=== PATIENT | female | born 1955 | race Two or more races ===

== ENCOUNTER 2024-11-20 18:10 | Emergency (ER) | payer MEDICARE, MEDICAID, SELFPAY ==
[2024-11-20 18:49] VITALS: BP 171/72; PULSE 103; RESP 18; TEMP 36.9; O2SAT 97
--- NOTE | 2024-11-20 19:06 | XR_ITS ---
Examination: AP chest single view Technique: AP portable upright chest single view Date and time: November 20, 2024, 1928 hrs., Comparison September 23, 2023 Indications: Weakness shortness of breath today. Findings: Mild prominence cardiac contour No pneumonia or pulmonary edema. Minor subsegmental atelectasis at the lung bases Median sternotomy wires. Significant osteopenia Impression: Minor bibasilar subsegmental atelectasis
--- NOTE | 2024-11-20 19:06 | EKG_ITS ---
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[id number] Requested By: Karen Vela Order Number: [id number] Reading MD: Karen Vela Measurements Intervals [place] Rate: 101 P: 51 ME: 122 QRS: -7 QRSD: 90 T: 79 QT: 345 QTc: 449 Interpretive Statements SINUS TACHYCARDIA WITH OCCASIONAL SUPRAVENTRICULAR PREMATURE COMPLEXES POSSIBLE LEFT ATRIAL ENLARGEMENT [-0.1mV P-WAVE IN V1/V2] LOW QRS VOLTAGE IN PRECORDIAL LEADS [QRS DEFLECTION < 1.0 mV IN CHEST LEADS] POSSIBLE ANTERIOR MYOCARDIAL INFARCTION , PROBABLY OLD [30 ms Q WAVE IN V3/V4, OR R < 0.2 mV IN V4] ABNORMAL RHYTHM ECG Compared to ECG 09/23/2023 21:54:50 Low QRS voltage now present Sinus rhythm no longer present Myocardial infarct finding still present /store/S0/[id number]/ecg/[id number].pdf
--- NOTE | 2024-11-20 19:08 | EDRME_ITS ---
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 Per patient she is complaining of increased stress recently. Patient did have dizziness this morning but is no longer having dizziness. Patient complains of weakness generalized patient denies chest pain but does feel short of breath and was having some abdominal pain. Patient also complains of some left groin pain on and off. Patient has bilateral [id number]-[id number]-eqgy amputations. Patient states she has to transfer herself to the bathroom. Patient has a history of diabetes high blood pressure, hyperlipidemia, coronary artery disease. Patient states she recently had a right finger infection but was on antibiotics and since then resolved per patient. Patient denies fever, nausea, vomiting. I have greeted and performed a focused initial assessment of this patient. Initial appropriate labs ordered at this time. A comprehensive ED assessment and evaluation of the patient and analysis of all test and completion of medical decision making process will be conducted by additional ED provider. Chief Complaint: Dizziness Time Seen by Provider: 11/20/24 18:21 Vital signs: Vital Signs Temperature 98.5 F 11/20/24 18:49 Pulse Rate 103 H 11/20/24 18:49 Respiratory Rate 18 11/20/24 18:49 Blood Pressure 171/72 H 11/20/24 18:49 Pulse Oximetry (%) 97 11/20/24 18:49 Oxygen Delivery Method Room Air 11/20/24 18:49
[2024-11-20 19:26] VITALS: BP 160/76; PULSE 99; RESP 18; O2SAT 98
--- NOTE | 2024-11-20 19:34 | PD.EDWEAK ---
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 Per patient she is complaining of increased stress recently. Patient did have dizziness this morning but is no longer having dizziness. Patient complains of weakness generalized patient denies chest pain but does feel short of breath and was having some abdominal pain. Patient also complains of some left groin pain on and off. Patient has bilateral bvojv-aqi-[id number] amputations. Patient states she has to transfer herself to the bathroom. Patient has a history of diabetes high blood pressure, hyperlipidemia, coronary artery disease. Patient states she recently had a right finger infection but was on antibiotics and since then resolved per patient. Patient denies fever, nausea, vomiting. I have greeted and performed a focused initial assessment of this patient. Initial appropriate labs ordered at this time. A comprehensive ED assessment and evaluation of the patient and analysis of all test and completion of medical decision making process will be conducted by additional ED provider. DR. NORIEGA MAIN ED EVALUATION: 69 y/o female with Hx of Type II DM, HTN, and BL Above the Knee Amputation presents to ED c/o weakness and dizziness x 2 days. Patient also reports left-sided abdominal pelvic pain. No other concerns or complaints expressed at this time. Related Data Home Medications ?Medication ?Instructions ?Recorded ?Confirmed metformin 500 mg tablet 500 mg PO BIDAC #0 tabs 11/20/13 10/10/23 (Glucophage) amlodipine 5 mg tablet 5 mg PO QDAY 09/06/23 10/10/23 clopidogrel 75 mg tablet 75 mg PO QDAY 09/06/23 10/10/23 lisinopril 20 mg tablet 20 mg PO QDAY 09/06/23 10/10/23 metoprolol succinate 100 mg 100 mg PO QDAY 09/06/23 10/10/23 tablet,extended release 24 hr aspirin 81 mg capsule 81 mg PO QDAY 09/07/23 10/10/23 atorvastatin 40 mg tablet 40 mg PO QDAY 09/07/23 10/10/23 baclofen 10 mg tablet 10 mg PO QDAY 09/07/23 10/10/23 gabapentin 300 mg capsule 300 mg PO HS 09/07/23 10/10/23 insulin degludec 100 unit/mL (3 20 unit subcut QDAY 09/07/23 10/10/23 mL) subcutaneous pen (Tresiba FlexTouch U-100 insulin) pantoprazole 40 mg tablet,delayed 40 mg PO QDAY 09/07/23 10/10/23 release Previous Rx's ?Medication ?Instructions ?Recorded cholecalciferol (vitamin D3) 25 2,000 unit PO QDAY #30 tabs 09/18/23 mcg (1,000 unit) tablet pregabalin 300 mg capsule (Lyrica) 300 mg PO BID #30 caps 09/18/23 ascorbic acid (vitamin C) 250 mg 500 mg (2 x 250 mg) PO BID #60 tabs 10/14/23 tablet (Vitamin C) docusate sodium 100 mg capsule 100 mg PO BID #60 caps 10/14/23 hydrocodone 5 mg-acetaminophen 325 1 tab PO Q6H PRN pain (scale score 10/14/23 mg tablet 7-10) #30 tabs zinc sulfate 50 mg zinc (220 mg) 220 mg (4.4 x 50 mg zinc (220 mg)) 10/14/23 capsule PO QDAY #30 caps ondansetron 4 mg disintegrating 4 mg PO Q6H PRN nausea and 10/24/23 tablet vomiting #10 tabs Allergies Allergy/AdvReac Type Severity Reaction Status Date / Time No Known Allergies Allergy Verified 11/20/24 18:14 Review of Systems Review of Systems Systems Reviewed: All systems reviewed, normal except as documented Past Medical History Past Medical History CARDIAC: Positive Hypercholesterolemia and Hypertension MUSCULOSKELETAL: Positive Musculoskeletal Disorders and Arthritis ENT: Positive Cataracts ENDOCRINE: Positive Endocrine Disorders and Diabetes Mellitus Type 2 OTHER HISTORY: Positive Falls and Blood Transfusions Family History FAMILY HISTORY: Positive Family Cardiac Disorders Surgical History SURGICAL: Positive Open Heart Surgery, Coronary Artery Bypass Graft, Amputation and Tubal Ligation ED Exam Narrative Physical exam: Generally patient is alert and in no obvious distress, heart regular rate and rhythm, lungs clear to auscultation equal bilaterally, abdomen is obese soft bowel sounds present's and nontender extremities show bilateral below the knee amputations, neurologic exam shows [place] Coma Scale of 15 Course Course Course Narrative: CXR was ordered for determining the etiology of shortness of breath. Quality Measures none Orders Category Date Time Status EKG (ED ONLY) *Do not use* NOW Care 11/20/24 19:06 Completed EKG (ED Only) Stat Exams 11/20/24 19:06 Draft XR chest 1V Stat Exams 11/20/24 19:06 Completed BNP [B-Type Natriuretic Peptide] Stat Lab 11/20/24 20:30 Completed CBC Stat Lab 11/20/24 20:30 Completed Comprehensive Metabolic Panel Stat Lab 11/20/24 20:30 Completed Lipase Stat Lab 11/20/24 20:30 Completed Troponin I Stat Lab 11/20/24 20:30 Completed Urinalysis, C/S if Indicated Stat Lab 11/20/24 20:15 Completed Urine Culture Stat Lab 11/20/24 20:15 Received cefTRIAXone/D5w 1gm IV premix [Rocephin/D5w 1gm IV Med 11/20/24 21:17 Discontinued premix] 1 gm in 50 ml IV X1 Vital Signs Vital signs: Vital Signs Temperature 98.5 F 11/20/24 18:49 Pulse Rate 103 H 11/20/24 18:49 Respiratory Rate 18 11/20/24 18:49 Blood Pressure 171/72 H 11/20/24 18:49 Pulse Oximetry (%) 97 11/20/24 18:49 Oxygen Delivery Method Room Air 11/20/24 18:49 Weakness MDM Narrative MDM Narrative:: Scribe Attestation: I, Misty Ramos am scribing for and in the presence of Dr. Noriega. Provider Notation: Although this document has been carefully reviewed, there may still be some phonetic and other typographical errors. These errors are purely grammatical due to imperfections in the software program and should not be construed in any way to compromise the substance of the patient's medical care during this visit. Differential diagnosis: Infection, electrolyte abnormality, anemia I interpreted all labs. There was no significant abnormality. There is a slight leukocytosis. Urine is infected. EKG done at 7:08 PM shows sinus tachycardia at a rate of 101 without ischemic change. Patient received Rocephin 1 g IV. Patient will be discharged on cephalexin to be taken as prescribed. Follow-up with her doctor. Return to ER as needed or if condition worsens. Patient data External records reviewed:: [facility] previous records (Reviewed prior ED records from 10/24/23. Patient was seen for Acute UTI.) Clinical information provided by:: patient Social determinants that could affect healthcare access:: none Patient has the following chronic illnesses:: Hypercholesterolemia, Hypertension, Arthritis, Cataracts, Diabetes Mellitus Type 2 How is presenting disease/condition affected by chronic disease/condition?: exacerbated by Evaluation data The following diagnostics were reviewed and interpreted by me:: lab results, radiology exam(s) and EKG tracing(s) Lab and/or radiology exams considered but not ordered:: None Interpretation Summary: RADIOLOGY Chest X-Ray: Findings: Mild prominence cardiac contour No pneumonia or pulmonary edema. Minor subsegmental atelectasis at the lung bases Median sternotomy wires. Significant osteopenia Impression: Minor bibasilar subsegmental atelectasis Medications / Prescriptions Medications or Prescriptions considered but not ordered:: None Medication administrations:: Medication Administration History Discontinued Medications Ceftriaxone Sodium/Dextrose (Rocephin/D5w 1gm Iv Premix) 1 gm in 50 mls @ 100 mls/hr IV X1 ONE Stop: 11/20/24 21:46 Last Admin: 11/20/24 21:29 Dose: 100 mls/hr Documented By: AMPARO See above if any. Consultations Consultation(s) initiated? (list below): No Diagnosis Weakness Differential Diagnosis: acute myocardial infarction, anemia, hypoglycemia, hypothyroidism, rhabdomyolysis, sepsis and dehydration Most likely diagnosis given after review of the tests above:: none Admission Indicated Admission indicated?: not indicated Explain why admission is indicated or not indicated:: Patient does not meet admission criteria. Admission Request Was there a request for admission?: No Disposition Plan Disposition Plan: Discharge Discharge Attestation Discharge Attestation: The patient and all family members were given an opportunity to ask questions and understood the discharge instructions. Discharge instructions specifically effects, indications for sooner follow up or return to the emergency department, and the expected course of current diagnosis. Patient condition: Stable Discharge Plan Plan Patient Disposition: HOME (Self Care) Prescriptions/Referrals Prescriptions/Med Rec: No Action metformin [Glucophage] 500 MG tablet 500 mg PO BIDAC Qty: 0 lisinopril 20 mg tablet 20 mg PO QDAY Patient Comments: TAKE 1 TABLET BY MOUTH EVERY DAY metoprolol succinate 100 mg tablet extended release 24 hr 100 mg PO QDAY Patient Comments: TAKE 1 TABLET BY MOUTH EVERY DAY clopidogrel 75 mg tablet 75 mg PO QDAY amlodipine 5 mg tablet 5 mg PO QDAY Patient Comments: TAKE 1 TABLET BY MOUTH EVERY DAY gabapentin 300 mg capsule 300 mg PO HS Patient Comments: TAKE 1 CAPSULE BY MOUTH EVERYDAY AT BEDTIME insulin degludec [Tresiba FlexTouch U-100] 100 unit/mL (3 mL) insulin pen 20 unit SUBCUT QDAY Patient Comments: INJECT 20 UNIT BY SUBCUTANEOUS ROUTE EVERY MORNING AFTER BREAKFAST atorvastatin 40 mg tablet 40 mg PO QDAY aspirin 81 mg Capsule 81 mg PO QDAY baclofen 10 mg tablet 10 mg PO QDAY Patient Comments: TAKE 1 TABLET BY MOUTH EVERY DAY pantoprazole 40 mg tablet,delayed release (DR/EC) 40 mg PO QDAY Patient Comments: TAKE 1 TABLET BY MOUTH EVERY DAY pregabalin [Lyrica] 300 mg capsule 300 mg PO BID Qty: 30 0RF cholecalciferol (vitamin D3) 25 mcg (1,000 unit) Tablet 2,000 unit PO QDAY Qty: 30 0RF ascorbic acid (vitamin C) [Vitamin C] 250 mg Tablet 500 mg PO BID Qty: 60 0RF hydrocodone-acetaminophen 5-325 mg Tablet 1 tab PO Q6H MDD 4 PRN (Reason: pain (scale score 7-10)) Qty: 30 0RF docusate sodium 100 mg Capsule 100 mg PO BID Qty: 60 0RF zinc sulfate 50 mg zinc (220 mg) Capsule 220 mg PO QDAY Qty: 30 0RF ondansetron 4 mg tablet,disintegrating 4 mg PO Q6H PRN (Reason: nausea and vomiting) Qty: 10 0RF Referrals: No Primary/Family,Physician [Referring Provider] - In 1 week Problem List Clinical Impression: Acute UTI Patient/Caregiver Discharge Instructions Education Materials: Urinary Tract Infections in Women Additional Instructions: Take the antibiotic as prescribed. Follow-up with your doctor. Return to ER as needed or if condition worsens. Print Language: [place] Stand Alone Forms: [employer] Info., Patient Portal Info Letter
[2024-11-20 20:53] LABS: Collection Type, Urine Voided
[2024-11-20 21:03] LABS: Basophils # (Auto) 0.1 Thou/mm3 (0.0-0.2); Basophils % (Auto) 1 % (0-2.5); Eosinophils # (Auto) 0.2 Thou/mm3 (0.0-0.5); Eosinophils % (Auto) 2 % (0-10); Hematocrit 37.4 % (36.0-46.0); Hemoglobin 12.1 g/dL (12.0-16.0); Immature Granulocytes Auto 0.08 Thou/mm3 (0.00-0.00); Lymphocytes # (Auto) 2.2 Thou/mm3 (1.0-4.8); Lymphocytes % (Auto) 14 % (10-50); Mean Corpuscular HGB Conc 32.4 g/dl (31.0-37.0); Mean Corpuscular Hemoglobin 28.3 pg (25.0-35.0); Mean Corpuscular Volume 87 fL (80-100); Monocytes # (Auto) 0.9 Thou/mm3 (0.0-0.8); Monocytes % (Auto) 6 % (0-12); Neutrophils # (Auto) 12.0 Thou/mm3 (1.8-7.7); Neutrophils % (Auto) 77 % (37-80); Nucleated Red Blood Cell # 0.00 Thou/mm3 (0.00-0.00); Nucleated Red Blood Cell % 0 /100 WBC (0); Platelet Count 499 Thou/mm3 (140-440); RDW Standard Deviation 44.1 fL (36.4-46.3); Red Blood Count 4.28 Miln/mm3 (4.00-5.20); White Blood Count 15.6 Thou/mm3 (3.6-11.0)
[2024-11-20 21:10] LABS: Bacteria,Urine 1+; Bilirubin,Urine Negative (Negative); Blood,Urine 3+ (Negative); Clarity,Urine Turbid (Clear/Hazy); Color,Urine Yellow (Lt Yel-Yel); Glucose, Urine 4+ (Negative); Ketones,Urine Negative (Negative); Leukocyte Esterase,Urine Positive (Negative); Nitrite,Urine Negative (Negative); PH,Urine 6.5 (5.0-7.0); Protein,Urine 1+ (Neg - Trace); RBC,Urine 110 /hpf (0-3); Specific Gravity,Urine 1.013 (1.001-1.035); Squamous Epithelial Cell,Urine 2 /hpf (0-5); Urobilinogen,Urine Negative mg/dL (0.0-1.0); WBC,Urine 897 /hpf (0-5)
[2024-11-20 21:11] LABS: Culture Indicated,Urine Yes
[2024-11-20 21:23] LABS: B-Type Natriuretic Peptide 112 pg/mL (0-100)
[2024-11-20] MEDS: cefTRIAXone/D5w 1gm IV premix 1 GM/50 ML BAG IV (21:29)
[2024-11-20 21:30] LABS: Alanine Aminotransferase < 7 U/L (10-49); Albumin, Serum 4.0 gm/dL (3.4-4.8); Albumin/Globulin Ratio 1.3 (1.2-2.2); Alkaline Phosphatase 103 U/L (46-116); Anion Gap 10 (7-16); Aspartate Amino Transferase < 8 U/L (0-34); BUN/Creatinine Ratio 23 Ratio (12-20); Bilirubin,Total 0.2 mg/dL (0.3-1.2); Blood Urea Nitrogen 18 mg/dL (9-23); Calcium 9.5 mg/dL (8.3-10.6); Calcium (Corrected) 9.5 mg/dL (8.5-10.1); Carbon Dioxide 28.3 mMol/L (20.0-31.0); Chloride 98 mMol/L (98-107); Creatinine (Component) 0.8 mg/dL (0.6-1.3); Globulin 3.1 gm/dL (2.3-3.5); Glucose 304 mg/dL (74-106); Lipase 36 U/L (12-53); Osmolality,Calculated 284 (275-295); Potassium 3.7 mMol/L (3.4-5.1); Sodium 136 mMol/L (136-145); Total Protein 7.1 gm/dL (5.7-8.2); Troponin I < 0.020 ng/mL (0.0-0.045); eGFR > 60 See Note
[2024-11-20 21:39] VITALS: BP 152/64; PULSE 97; RESP 18; TEMP 37.1; O2SAT 98
== END 2024-11-20 22:22 | disposition home or self-care (01) ==
PROVIDERS: Nurse Practitioner Family; Emergency Provider Emergency Medicine; PCP Physician Assistant
DX: N39.0 Urinary tract infection, site not specified (principal); J98.11 Atelectasis; I49.1 Atrial premature depolarization; R00.0 Tachycardia, unspecified; I10 Essential (primary) hypertension; E78.00 Pure hypercholesterolemia, unspecified
CPT/HCPCS: 36415; 71045; 80053; 81001; 83690; 83880; 84484; 85025; 87077; 87086; 87186; 93005; 96365; 99283; J0696